=== PATIENT | male | born 2000 | race Caucasian/White ===

== ENCOUNTER 2018-03-17 13:49 | Emergency (ER) | payer OTHER ==
[~2018-03-17] VITALS: Ht 167.6 cm; Wt 78.9 kg
[2018-03-17 14:13] VITALS: BP 117/81
--- NOTE | 2018-03-17 15:00 | NUR ---
PATIENT RETURNED FROM XRAY, TAKEN TO ER BED 7 BY WHEELCHAIR
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
[2018-03-17 15:45] VITALS: BP 114/76
--- NOTE | 2018-03-17 15:45 | NUR ---
RICHELLE Coleman ARM BY CHRISTO MCBRIDE.
== END 2018-03-17 15:45 | disposition home or self-care (01) ==
LOC: MED 13:49
DX: M25.512 Pain in left shoulder (principal); V09.9XXA Pedestrian injured in unspecified transport accident, initial encounter; Y93.55 Activity, bike riding; Y92.89 Other specified places as the place of occurrence of the external cause; Y99.8 Other external cause status
CPT/HCPCS: 73030; 99283